=== PATIENT | male | born 1960 | race Two or more races ===

== ENCOUNTER 2016-09-25 06:22 | Observation (INO) | payer BC ==
[2016-09-25] MEDS ORDERED: Sodium Chloride 0.9% 1,000 ML IV SCH (07:00)
[2016-09-25] MEDS ORDERED: Albuterol/Ipratropium 3.0-0.5 MG/3 ML Neb Soln NEB ONE (07:10)
--- NOTE | 2016-09-25 07:10 | EDM.PDOC ---
ED HPI GENERAL MEDICAL PROBLEM - General Chief Complaint: General Stated Complaint: CHILLS; RIGHT SIDE ABDOMINAL PAIN Time Seen by Provider: 09/25/16 06:59 - History of Present Illness INITIAL COMMENTS - FREE TEXT/NARRATIVE: HISTORY AND PHYSICAL: History of present illness: The patient is a 55-year-old male with no stated medical problems who presents with complaints of 4 days of a "light cold" which consisted of cough with yellow phlegm nasal congestion and bodyaches which seemed to improve yesterday but then worsened again today with persistent hacking cough productive of phlegm but this morning he had bodyaches that were sent and chills and feverish feeling. He has no anterior chest pain but had some right flank pain worse with coughing that started with coughing. He has no urinary complaints and no abdominal complaints no vomiting or diarrhea no headache or neck pain. He has no sore throat. Patient did not get his influenza shot this year but has no pulmonary or cardiac disease. Patient is not a smoker and he states he has been around a lot of sick people at work. He has no leg pain or swelling no back pain and has been eating and drinking but not hydrating as much as usual. He does not feel short of breath he just "can't stop coughing". Review of systems: As per history of present illness and below otherwise all systems reviewed and negative. Past medical history: As per history of present illness and as reviewed below otherwise noncontributory. Surgical history: As per history of present illness and as reviewed below otherwise noncontributory. Social history: No reported history of drug or alcohol abuse. Family history: As per history of present illness and as reviewed below otherwise noncontributory. Physical exam: General: Well-developed well-nourished male who is nontoxic and has nasal quality to voice. EKG has been reviewed any a sinus tachycardia both on the EKG and on auscultation. He is speaking clearly and easily without breathlessness HEENT: Atraumatic, normocephalic, pupils reactive, negative for conjunctival pallor or scleral icterus, mucous membranes moist, throat clear, neck supple, nontender, trachea midline. No cervical adenopathy or nuchal rigidity Lungs: Clear to auscultation with some expiratory wheezing in the left base and diminished breath sounds in the right base but no work or breathing or stridor, breath sounds equal bilaterally, chest nontender. Heart: S1S2, regular rate but tachycardic rhythm, negative for clicks, rubs, or JVD. Abdomen: Soft, nondistended, nontender. Negative for masses or hepatosplenomegaly. Negative for costovertebral tenderness. Pelvis: Stable nontender. Genitourinary: Deferred. Rectal: Deferred. Extremities: Atraumatic, negative for cords or calf pain. Neurovascular unremarkable. Pedal edema Neuro: Awake, alert, oriented. Cranial nerves II through XII unremarkable. Cerebellum unremarkable. Motor and sensory unremarkable throughout. Exam nonfocal. Diagnostics: EKG chest x-ray CBC CMP troponin influenza swab lactic acid amylase lipase Therapeutics: IV O2 monitor IV fluids duo neb Patient's labs and chest x-ray have been reviewed and his temperature is down to 100.8, heart rate is 118 and he is resting in the ED. We will get a second liter of IV fluid and a dose of Rocephin and reevaluate. 0900: this case was discussed with our hospitalist Dr. Leavitt who agrees for observation admission for the persistent tachycardia and a likely viral illness and patient is willing to stay. Impression: Persistent tachycardia with a viral illness rule out early sepsis Definitive disposition and diagnosis as appropriate pending reevaluation and review of above. generalized Pain Score (Numeric/FACES): 8 - Related Data Allergies Allergy/AdvReac Type Severity Reaction Status Date / Time No Known Allergies Allergy Verified 09/25/16 06:36 Home Meds: Home Meds Multivitamin [Multivitamins] 1 each PO DAILY 09/25/16 [History] Past Medical History HEENT History: Reports: None Cardiovascular History: Reports: None Respiratory History: Reports: None Gastrointestinal History: Reports: None Genitourinary History: Reports: None Musculoskeletal History: Reports: Other (see below) Other Musculoskeletal History: surgery on foot from stepping on niru nail Neurological History: Reports: None Psychiatric History: Reports: None Endocrine/Metabolic History: Reports: None Hematologic History: Reports: None - Infectious Disease History Infectious Disease History: Reports: Chicken pox Social & Family History - Family History Family Medical History: Noncontributory - Tobacco Use Smoking Status *Q: Never Smoker - Recreational Drug Use Recreational Drug Use: No ED ROS GENERAL - Review of Systems Review Of Systems: ROS reveals no pertinent complaints other than HPI. ED EXAM, GENERAL - Physical Exam Exam: See Below (See dictation) Course - Vital Signs Last Recorded V/S: Last Vital Signs Temp 38.2 C H 09/25/16 08:10 Pulse 118 H 09/25/16 08:10 Resp 20 09/25/16 08:10 BP 135/86 09/25/16 08:10 Pulse Ox 96 09/25/16 08:10 - Orders/Labs/Meds Orders: Active Orders 24 hr Category Date Time Status Cardiac Monitoring [RC] . DIRECTED Care 09/25/16 07:00 Active EKG Documentation Completion [RC] STAT Care 09/25/16 06:53 Active Oxygen Therapy, ED [RC] ASDIRECTED Care 09/25/16 07:00 Active Pulse Oximetry [RC] ASDIRECTED Care 09/25/16 07:00 Active RT Aerosol Therapy [RC] ASDIRECTED Care 09/25/16 07:10 Active Chest 2V [CR] Stat Exams 09/25/16 07:10 Taken UA W/MICROSCOPIC [URIN] Stat Lab 09/25/16 07:06 Uncollected Sodium Chloride 0.9% [Normal Saline] 1,000 ml Med 09/25/16 08:08 Active IV .Bolus Sodium Chloride 0.9% [Normal Saline] 1,000 ml Med 09/25/16 07:00 Active IV ASDIRECTED Medication Orders Sodium Chloride (Normal Saline) 1,000 mls @ 999 mls/hr IV ASDIRECTED RAQUEL Last Admin: 09/25/16 07:07 Dose: 999 mls/hr Sodium Chloride (Normal Saline) 1,000 mls @ 999 mls/hr IV .Bolus ONE Stop: 09/25/16 09:08 Last Admin: 09/25/16 08:13 Dose: 999 mls/hr Labs: Laboratory Tests 09/25/16 09/25/16 09/25/16 Range/Units 07:12 07:12 07:12 WBC 12.61 H (4.0-11.0) K/uL RBC 5.14 (4.50-5.90) M/uL Hgb 14.4 (13.0-17.0) g/dL Hct 43.3 (38.0-50.0) % MCV 84.2 (80.0-98.0) fL MCH 28.0 (27.0-32.0) pg MCHC 33.3 (31.0-37.0) g/dL RDW Std Deviation 40.9 (28.0-62.0) fl RDW Coeff of Shannon 14 (11.0-15.0) % Plt Count 197 (150-400) K/uL MPV 8.60 (7.40-12.00) fL Neut % (Auto) 86.9 H (48.0-80.0) % Lymph % (Auto) 7.5 L (16.0-40.0) % Payette % (Auto) 4.5 (0.0-15.0) % Eos % (Auto) 0.9 (0.0-7.0) % Baso % (Auto) 0.2 (0.0-1.5) % Neut # (Auto) 11.0 H (1.4-5.7) K/uL Lymph # (Auto) 0.9 (0.6-2.4) K/uL Payette # (Auto) 0.6 (0.0-0.8) K/uL Eos # (Auto) 0.1 (0.0-0.7) K/uL Baso # (Auto) 0.0 (0.0-0.1) K/uL Nucleated RBC % 0.0 /100WBC Nucleated RBCs # 0 K/uL Lactate (0.20-2.00) mmol/L Sodium 136 (136-146) mmol/L Potassium 4.1 (3.5-5.1) mmol/L Chloride 105 (98-110) mmol/L Carbon Dioxide 22 (21-31) mmol/L BUN 20 (6.0-23.0) mg/dL Creatinine 1.0 (0.6-1.5) mg/dL Est Cr Clr Drug Dosing 85.43 mL/min Estimated GFR (MDRD) > 60.0 ml/min Glucose 123 H (60-110) mg/dL Calcium 8.6 L (8.8-10.8) mg/dL Total Bilirubin 0.7 (0.1-1.5) mg/dL AST 22 (5-40) IU/L ALT 12 (8-54) IU/L Alkaline Phosphatase 93 (40-150) Troponin I < 0.10 (0.0-0.29) NG/ML Total Protein 7.5 (6.0-8.0) g/dL Albumin 3.6 (3.5-5.0) g/dL Globulin 3.9 H (2.0-3.5) g/dL Albumin/Globulin Ratio 0.9 L (1.3-2.8) Amylase (10-90) U/L Lipase (7-80) U/L 09/25/16 09/25/16 Range/Units 07:12 07:12 WBC (4.0-11.0) K/uL RBC (4.50-5.90) M/uL Hgb (13.0-17.0) g/dL Hct (38.0-50.0) % MCV (80.0-98.0) fL MCH (27.0-32.0) pg MCHC (31.0-37.0) g/dL RDW Std Deviation (28.0-62.0) fl RDW Coeff of Shannon (11.0-15.0) % Plt Count (150-400) K/uL MPV (7.40-12.00) fL Neut % (Auto) (48.0-80.0) % Lymph % (Auto) (16.0-40.0) % Payette % (Auto) (0.0-15.0) % Eos % (Auto) (0.0-7.0) % Baso % (Auto) (0.0-1.5) % Neut # (Auto) (1.4-5.7) K/uL Lymph # (Auto) (0.6-2.4) K/uL Payette # (Auto) (0.0-0.8) K/uL Eos # (Auto) (0.0-0.7) K/uL Baso # (Auto) (0.0-0.1) K/uL Nucleated RBC % /100WBC Nucleated RBCs # K/uL Lactate 1.7 (0.20-2.00) mmol/L Sodium (136-146) mmol/L Potassium (3.5-5.1) mmol/L Chloride (98-110) mmol/L Carbon Dioxide (21-31) mmol/L BUN (6.0-23.0) mg/dL Creatinine (0.6-1.5) mg/dL Est Cr Clr Drug Dosing mL/min Estimated GFR (MDRD) ml/min Glucose (60-110) mg/dL Calcium (8.8-10.8) mg/dL Total Bilirubin (0.1-1.5) mg/dL AST (5-40) IU/L ALT (8-54) IU/L Alkaline Phosphatase (40-150) Troponin I (0.0-0.29) NG/ML Total Protein (6.0-8.0) g/dL Albumin (3.5-5.0) g/dL Globulin (2.0-3.5) g/dL Albumin/Globulin Ratio (1.3-2.8) Amylase 70 (10-90) U/L Lipase 22 (7-80) U/L Meds: Medications Generic Name Dose Route Start Last Admin Trade Name Freq PRN Reason Stop Dose Admin Sodium Chloride 1,000 mls @ 999 mls/hr 09/25/16 07:00 09/25/16 07:07 Normal Saline IV 999 mls/hr ASDIRECTED RAQUEL Administration Sodium Chloride 1,000 mls @ 999 mls/hr 09/25/16 08:08 09/25/16 08:13 Normal Saline IV 09/25/16 09:08 999 mls/hr .Bolus ONE Administration Discontinued Medications Generic Name Dose Route Start Last Admin Trade Name Freq PRN Reason Stop Dose Admin Acetaminophen 1,000 mg 09/25/16 07:13 09/25/16 07:30 Tylenol Extra Strength PO 09/25/16 07:14 1,000 mg ONETIME ONE Administration Albuterol/Ipratropium 3 ml 09/25/16 07:10 09/25/16 07:12 Duoneb 3.0-0.5 Mg/3 Ml NEB 09/25/16 07:11 3 ml ONETIME ONE Administration Albuterol/Ipratropium Confirm 09/25/16 07:11 09/25/16 07:22 Duoneb 3.0-0.5 Mg/3 Ml Administered 09/25/16 07:12 Not Given Dose 3 ml .ROUTE .STK-MED ONE Ceftriaxone Sodium/Dextrose 1 50 mls @ 100 mls/hr 09/25/16 08:09 09/25/16 08: 17 gm/ Premix IV 09/25/16 08:38 100 mls/hr ONETIME ONE Administration Ketorolac Tromethamine 30 mg 09/25/16 07:14 09/25/16 07:31 Toradol IVPUSH 09/25/16 07:15 30 mg ONETIME ONE Administration Departure - Departure Time of Disposition: 09:01 Disposition: Refer to Observation Condition: good Clinical Impression: Viral illness, Tachycardia Forms: ED Department Discharge - My Orders Last 24 Hours: My Active Orders 09/25/16 07:00 Cardiac Monitoring [RC] . DIRECTED Oxygen Therapy, ED [RC] ASDIRECTED Pulse Oximetry [RC] ASDIRECTED 09/25/16 07:06 UA W/MICROSCOPIC [URIN] Stat 09/25/16 07:10 RT Aerosol Therapy [RC] ASDIRECTED Chest 2V [CR] Stat 09/25/16 08:08 Sodium Chloride 0.9% [Normal Saline] 1,000 ml IV .Bolus - Assessment/Plan Last 24 Hours: My Active Orders 09/25/16 07:00 Cardiac Monitoring [RC] . DIRECTED Oxygen Therapy, ED [RC] ASDIRECTED Pulse Oximetry [RC] ASDIRECTED 09/25/16 07:06 UA W/MICROSCOPIC [URIN] Stat 09/25/16 07:10 RT Aerosol Therapy [RC] ASDIRECTED Chest 2V [CR] Stat 09/25/16 08:08 Sodium Chloride 0.9% [Normal Saline] 1,000 ml IV .Bolus
[2016-09-25] MEDS ORDERED: Albuterol/Ipratropium 3.0-0.5 MG/3 ML Neb Soln ONE (07:11)
[2016-09-25] MEDS ORDERED: Acetaminophen 500 MG Tab PO ONE (07:13)
[2016-09-25] MEDS ORDERED: Ketorolac 30 MG/ML SDV IVPUSH ONE (07:14)
[2016-09-25 07:44] LABS: CHLORIDE,CL 105 mmol/L (98-110); SODIUM,NA 136 mmol/L (136-146)
[2016-09-25] MEDS ORDERED: Sodium Chloride 0.9% 1,000 ML IV ONE (08:08)
[2016-09-25] MEDS ORDERED: cefTRIAXone 1 GM in Premix Bag 1 BAG IV ONE (08:09)
--- NOTE | 2016-09-25 10:41 | CR ---
EXAM DATE: 09/25/16 PATIENT'S AGE: 55 Patient: HUTNER CAMACHO Facility: [place], [place] Site . Site : [id number] Study: XRay Chest [id number]/6/2017 7:23:59 AM Ordering Physician: Jose Amaya Final Report: HISTORY: Shortness of breath, cough and fatigue. FINDINGS: PA and lateral chest radiographs demonstrate a normal cardiac silhouette. Pulmonary vasculature and beatriz are normal. No consolidation or pleural effusion is seen. Peridiscal spurring is seen within the thoracic spine. IMPRESSION: No acute cardiopulmonary disease or infiltrate. Dictated by Laura Freeman MD @ 09/25/2016 7:33:19 AM Dictated by: Laura Freeman MD @ 09/25/2016 07:33:27 (Electronic Signature) Report Signed by Proxy and Original Signed Document filed in the Medical Record. MTDD
[2016-09-25] MEDS ORDERED: Ondansetron 4 MG/2 ML SDV IVPUSH PRN (10:55)
--- NOTE | 2016-09-25 11:27 | PCM.HP ---
H&P History of Present Illness - General Date of Service: 09/25/16 Admit Problem/Dx: Admission Diagnosis/Problem Admission Diagnosis/Problem Tachycardia Source of Information: Patient History Limitations: Reports: No limitations - History of Present Illness Initial Comments - Free Text/Narative: This 55 year old male with little pmh presented to the ED with complaints of cough,malaise and body aches. He reports on Thursday he started sneezing and coughing with a runny nose and sore throat. It progressively worsened and has now included fevers, chills, body aches and maliase. He reports he woke up at 3 am this darnell shaking uncontrollably and felt he should be evaluated. He did not receive his influenza vaccine and has been around a lot of sick contacts at work. He reports approximately 2 months ago he was sick with a similar cold but it was as bad, but it "knocked him down" for 2-3 days. He has no complaints of chest pain. He has SOB and intermittently can feel palpitations. No abdominal pain or urinary symptoms. Has been constipated recently and not drinking much for fluids. No black or bloody BMs. He has complaints of low back pain intermittently and his legs feeling weak. No neck stiffness or rigidity. In [facility] ED leukocytosis noted, 12,610, lactate 1.7, Influenza negative, CXR negative. He was febrile, 102.3 F, He was given 2 L IVFs and given Rocephin. EKG , revealed sinus tachycardia, rate 110s. He will be admitted for fever, tachycardia with a likely viral illness. generalized Pain Score (Numeric/FACES): 8 - Related Data Allergies/Adverse Reactions: Allergies Allergy/AdvReac Type Severity Reaction Status Date / Time No Known Allergies Allergy Verified 09/25/16 06:36 Home Medications: Home Meds Multivitamin [Multivitamins] 1 each PO DAILY 09/25/16 [History] Past Medical History HEENT History: Reports: None Cardiovascular History: Reports: Hypertension (been told he is borderline). Denies: Afib, Blood clots/VTE/DVT, AL Respiratory History: Reports: None. Denies: Asthma, COPD Gastrointestinal History: Reports: None, GERD (intermittent). Denies: GI bleed Genitourinary History: Reports: None. Denies: Acute renal failure, Chronic renal insuffiency Musculoskeletal History: Reports: Other (see below) Other Musculoskeletal History: surgery on foot from stepping on niru nail Neurological History: Reports: None Psychiatric History: Reports: None Endocrine/Metabolic History: Reports: Obesity/BMI 30+. Denies: Diabetes, type II Hematologic History: Reports: None - Infectious Disease History Infectious Disease History: Reports: Chicken pox Social & Family History - Family History Family Medical History: Noncontributory - Tobacco Use Smoking Status *Q: Never Smoker Second Hand Smoke Exposure: No - Caffeine Use Caffeine Use: Reports: Coffee - Recreational Drug Use Recreational Drug Use: No - Living Situation & Occupation Living situation: Reports: (Originally from [place], currently still lives in [place]. He is here working.) Occupation: employed [employer] Review of Systems - Review of Systems: Review Of Systems: See Below General: Reports: fever, chills, malaise, weakness, diaphoresis, decreased appetite HEENT: Reports: headaches. Denies: sore throat Pulmonary: Reports: Shortness of Breath, Pleuritic Chest Pain, Cough, Sputum Cardiovascular: Denies: chest pain, dyspnea on exertion, edema Gastrointestinal: Reports: Constipation, Decreased appetite, Flatus. Denies: Abdominal pain, Distension, Nausea, Vomiting Genitourinary: Reports: no symptoms. Denies: dysuria, frequency, burning Musculoskeletal: Reports: back pain (low back pain, worsens with coughing). Denies: neck pain Skin: Reports: no symptoms Psychiatric: Reports: no symptoms Neurological: Reports: No Symptoms Hematologic/Lymphatic: Reports: no symptoms Immunologic: Reports: no symptoms Exam - Exam Exam: See Below - Vital Signs Vital Signs: Last Vital Signs Temp 100.6 F 09/25/16 09:11 Pulse 104 H 09/25/16 10:02 Resp 18 09/25/16 10:02 BP 113/60 09/25/16 10:02 Pulse Ox 97 09/25/16 10:02 Weight: 102 kg - Exam Quality Assessment: DVT prophylaxis General: alert, oriented, cooperative HEENT: Conjunctiva clear, EACs clear, EOMI, Hearing intact, Mucosa moist & pink , Nares patent (congestion heard), Posterior pharynx clear Neck: supple, trachea midline, 2+ carotid pulse wo bruit. No: lymphadenopathy Lungs: Clear to auscultation, Normal respiratory effort, Other (congested coughing) Cardiovascular: regular rhythm, normal S1, normal S2, tachycardia (improving with IVFs) Abdomen: normal bowel sounds, soft. No: organomegaly, distention, rebound, tenderness Back Exam: normal inspection, full range of motion, NT Extremities: 3, normal inspection, 10 Neuro Extensive - Mental Status: alert, oriented x3, normal mood/affect, normal cognition Neuro Extensive - Motor, Sensory, Reflexes: CN II-XII intact, normal gait, normal reflexes Psychiatric: alert, normal affect, normal mood - Patient Data Result Diagrams: 09/25/16 07:12 09/25/16 07:12 *Q Meaningful Use (ADM) - VTE *Q VTE Criteria *Q: - VTE Risk Assess *Q Each Risk Factor Represents 1 Point: Age 41 - 59 years, Obesity (BMI greater than 30) Total Score 1 Point Risk Factors: 2 Each Risk Factor Represents 2 Points: None Total Score 2 Point Risk Factors: 0 Each Risk Factor Represents 3 Points: None Total Score 3 Point Risk Factors: 0 Each Risk Factor Represents 5 Points: None Total Score 5 Point Risk Factors: 0 Venous Thromboembolism Risk Factor Score *Q: 2 - Stroke *Q Stroke Criteria *Q: - AMI *Q AMI Criteria *Q: - Problem List (1) Fever SNOMED Code(s): 046433705 ICD Code: R50.9 - FEVER, UNSPECIFIED Status: Acute Current Visit: Yes Qualifiers: Encounter type: initial encounter (2) Leukocytosis SNOMED Code(s): 774557719, 760631457 ICD Code: D72.829 - ELEVATED WHITE BLOOD CELL COUNT, UNSPECIFIED Status: Acute Current Visit: Yes (3) Tachycardia SNOMED Code(s): 1253628 ICD Code: R00.0 - TACHYCARDIA, UNSPECIFIED Status: Acute Current Visit: Yes (4) Viral illness SNOMED Code(s): 95786573, 529957268 ICD Code: B34.9 - VIRAL INFECTION, UNSPECIFIED Status: Acute Current Visit: Yes Problem List Initiated/Reviewed/Updated: Yes Orders Last 24hrs: Active Orders 24 hr Category Date Time Status Antiembolic Devices [RC] PER UNIT ROUTINE Care 09/25/16 10:56 Ordered Intake and Output [RC] QSHIFT Care 09/25/16 10:55 Ordered Oxygen Therapy [RC] PRN Care 09/25/16 10:55 Ordered Telemetry Monitoring [Cardiac Monitoring] [RC] . Care 09/25/16 10:54 Ordered DIRECTED Up ad Dinah [RC] ASDIRECTED Care 09/25/16 10:55 Ordered VTE/DVT Education [RC] PER UNIT ROUTINE Care 09/25/16 10:55 Ordered Vital Signs [RC] Q4H Care 09/25/16 10:55 Ordered Regular Diet [DIET] Diet 09/25/16 Lunch Ordered BASIC METABOLIC PANEL,BMP [CHEM] AM Lab 09/26/16 05:11 Ordered CBC WITH AUTO DIFF [HEME] AM Lab 09/26/16 05:11 Ordered Acetaminophen [Tylenol] Med 09/25/16 10:55 Ordered 650 mg PO Q4H PRN Azithromycin [Zithromax] Med 09/25/16 11:15 Ordered 500 mg PO Q24H Ondansetron [Zofran] Med 09/25/16 10:55 Ordered 4 mg IVPUSH Q4H PRN Sodium Chloride 0.9% @ 125 MLS/HR (1000ml) Med 09/25/16 11:00 Ordered Sodium Chloride 0.9% [Normal Saline] 1,000 ml IV ASDIRECTED cefTRIAXone [Rocephin in Dextrose,Iso-Osm 1 GM/50 ML] 1 Med 09/26/16 09:00 Ordered gm Premix Bag 1 bag IV Q24H Sequential Compression Device [OM.PC] Per Unit Routine Oth 09/25/16 10:55 Ordered Resuscitation Status Routine Resus Stat 09/25/16 10:55 Ordered Medication Orders Acetaminophen (Tylenol) 650 mg PO Q4H PRN PRN Reason: Pain Azithromycin (Zithromax) 500 mg PO Q24H [facility] Sodium Chloride (Normal Saline) 1,000 mls @ 999 mls/hr IV ASDIRECTED [facility] Last Admin: 09/25/16 07:07 Dose: 999 mls/hr Sodium Chloride (Normal Saline) 1,000 mls @ 125 mls/hr IV ASDIRECTED [facility] Ceftriaxone Sodium/Dextrose 1 (gm/ Premix) 50 mls @ 100 mls/hr IV Q24H [facility] Ondansetron HCl (Zofran) 4 mg IVPUSH Q4H PRN PRN Reason: Nausea Assessment/Plan Comment:: This 55 year old male admitted with fever, leukocytosis, and malaise 1. Fever/leukocytosis: Will continue with Rocephin and Azithromycin. Continue IVFs, NS 125. UA negative. Though influenza negative, will start Tamiflu 75 mg BID 2. Tachycardia: EKG ST, monitor on telemetry. No chest pain. Tachycardia likely due to dehydration secondary to illness and fever. VTE: SCDs Dispo: Likely discharge in am, pending improvement.
[2016-09-25] MEDS: Sodium Chloride 0.9% 1,000 ML IV SCH ×2 (11:32→19:19)
[2016-09-25] MEDS: Azithromycin 250 MG Tab PO SCH (11:32)
[2016-09-25] MEDS: Acetaminophen 325 MG Tab PO PRN ×3 (11:52→20:46)
[2016-09-25] MEDS ORDERED: Albuterol/Ipratropium 3.0-0.5 MG/3 ML Neb Soln NEB PRN (12:30)
[2016-09-25] MEDS: Oseltamivir 75 MG Cap PO SCH ×2 (13:12→20:46)
[2016-09-25] MEDS ORDERED: Benzonatate 100 MG Cap PO PRN (14:44)
[2016-09-25] MEDS ORDERED: Polyethylene Glycol 3350 Powder 17 GM Packet PO PRN (15:14)
[2016-09-25] MEDS: Docusate Sodium 100 MG Cap PO SCH ×2 (15:48→21:30)
[2016-09-25] MEDS ORDERED: Ibuprofen 400 MG Tab PO PRN (16:12)
[2016-09-26] MEDS: Sodium Chloride 0.9% 1,000 ML IV SCH (03:11)
[2016-09-26 05:17] LABS: CHLORIDE,CL 109 mmol/L (98-110); SODIUM,NA 139 mmol/L (136-146)
[2016-09-26] MEDS ORDERED: Calcium Carbonate 500 MG Tab.Chew PO ONE (07:59)
[2016-09-26 08:12] VITALS: BP 141/81
[2016-09-26] MEDS: Oseltamivir 75 MG Cap PO SCH (08:17)
[2016-09-26] MEDS: Docusate Sodium 100 MG Cap PO SCH (08:17)
[2016-09-26] MEDS ORDERED: cefTRIAXone 1 GM in Premix Bag 1 BAG IV SCH (09:00)
--- NOTE | 2016-09-26 09:39 | PCM.DCSUM1 ---
Discharge Summary - Hospital Course Brief History: This 55 year old male with little pmh presented to the ED 2016 with complaints of cough,malaise and body aches. He reports on Thursday he started sneezing and coughing with a runny nose and sore throat. It progressively worsened and has now included fevers, chills, body aches and maliase. He reports he woke up at 3 am this darnell shaking uncontrollably and felt he should be evaluated. He did not receive his influenza vaccine and has been around a lot of sick contacts at work. He reports approximately 2 months ago he was sick with a similar cold but it was as bad, but it "knocked him down" for 2- 3 days. He has no complaints of chest pain. He has SOB and intermittently can feel palpitations. No abdominal pain or urinary symptoms. Has been constipated recently and not drinking much for fluids. No black or bloody BMs. He has complaints of low back pain intermittently and his legs feeling weak. No neck stiffness or rigidity. In the ED leukocytosis noted, 12,610, lactate 1.7, Influenza negative, CXR negative. He was febrile, 102.3 F, He was given 2 L IVFs and given Rocephin. EKG, revealed sinus tachycardia, rate 110s. He was admitted for fever, tachycardia with a likely viral illness. - Discharge Data Discharge Date: 09/26/16 Discharge Disposition: Home, Self-Care 01 Condition: Good - Discharge Diagnosis/Problem(s) (1) Fever SNOMED Code(s): 773986069 ICD Code: R50.9 - FEVER, UNSPECIFIED Status: Resolved Current Visit: Yes Qualifiers: Encounter type: initial encounter (2) Leukocytosis SNOMED Code(s): 016053196, 810759946 ICD Code: D72.829 - ELEVATED WHITE BLOOD CELL COUNT, UNSPECIFIED Status: Acute Current Visit: Yes (3) Tachycardia SNOMED Code(s): 0067342 ICD Code: R00.0 - TACHYCARDIA, UNSPECIFIED Status: Acute Current Visit: Yes (4) Viral illness SNOMED Code(s): 53816635, 536218438 ICD Code: B34.9 - VIRAL INFECTION, UNSPECIFIED Status: Acute Current Visit: Yes - Patient Instructions Diet: Regular Diet as Tolerated Activity: As Tolerated, No Strenuous Activities Driving: May Drive Today Showering/Bathing: May Shower Notify Provider of: Fever, Increased Pain, Swelling and Redness, Drainage, Nausea and/or Vomiting - Discharge Plan Prescriptions/Med Rec: RX: Azithromycin [Zithromax] 500 mg PO Q24H #6 tablet RX: Benzonatate [Tessalon Perles] 100 mg PO TID PRN #20 cap PRN Reason: Cough RX: Oseltamivir Phosphate [IJD: Tamiflu] 75 mg PO BID #7 capsule Home Medications: Home Meds RX: Multivitamin [Multivitamins] 1 each PO DAILY 09/25/16 [History] RX: Azithromycin [Zithromax] 500 mg PO Q24H #6 tablet 09/26/16 [Rx] RX: Benzonatate [Tessalon Perles] 100 mg PO TID PRN #20 cap 09/26/16 [Rx] RX: Oseltamivir Phosphate [IJD: Tamiflu] 75 mg PO BID #7 capsule 09/26/16 [Rx] Patient Handouts: Viral Respiratory Infection, [id number] Forms: ED Department Discharge Referrals: Enma Cleveland PA [Physician Crystal Inspector] - 09/29/16 10:00 am (Hospital follow up ) - Discharge Summary/Plan Comment DC Time >30 min.: No Discharge Summary/Plan Comment: Discharge diagnoses: Viral illness with fever tachycardia dehydration Gabo was admitted to observation and treated with Azithromycin and Rocephin along with Tamiflu and IV fluids. Tachycardia resolved with hydration. Tamiflu given due to flu-like symptoms, though influenza swab was negative. Azithromycin and Rocephin administered due to leukocytosis and fevers. Today Gabo is feeling much better, sinus congestion is much more clear. and cough has improved. He was able to eat a large breakfast and feels a lot stronger. He is requesting discharge today. I will send him home with Azithromycin for another 3 days along with tamiflu for 4 more days and tessalon pearls for cough. He will be returning home to [place], will encourage him to follow up with PCP to ensure he is continuing to improve. He otherwise will be able to return to work on Thursday. He is to return to the ED or clinic if concerns should arise. - General Info Date of Service: 09/26/16 Admission Dx/Problem (Free Text: Admission Diagnosis/Problem Admission Diagnosis/Problem Tachycardia Subjective Update: Feeling a lot better, sitting up in bed just finished eating breakfast. Reports no chest pain and SOB is better, coughing continues but is improved. Sinus congestion is much more clear and is able to breath through his nose. - Review of Systems General: Reports: No Symptoms. Denies: Fever, Fatigue HEENT: Reports: sinus congestion. Denies: ear pain, sore throat, visual changes Pulmonary: Reports: cough. Denies: shortness of breath Cardiovascular: Reports: No Symptoms. Denies: Chest Pain, Palpitations, Edema Gastrointestinal: Reports: No symptoms. Denies: Abdominal pain, Nausea, Vomiting Genitourinary: Reports: no symptoms. Denies: dysuria, frequency, burning Musculoskeletal: Reports: no symptoms Skin: Reports: no symptoms Neurological: Reports: No Symptoms Psychiatric: Reports: no symptoms - Patient Data Vitals - Most Recent: Last Vital Signs Temp 98.8 F 09/26/16 08:00 Pulse 104 H 09/25/16 10:02 Resp 20 09/26/16 08:00 BP 141/81 H 09/26/16 08:00 Pulse Ox 95 09/26/16 08:00 Weight - Most Recent: 102 kg I&O - Last 24 hours: Intake & Output 09/25/16 09/26/16 09/26/16 22:59 06:59 14:59 Intake Total 1700 1650 Output Total 1075 1630 Balance 625 20 Lab Results - Last 24 hrs: Laboratory Results - last 24 hr 09/25/16 09/26/16 09/26/16 Range/Units 11:15 04:52 04:52 WBC 12.13 H (4.0-11.0) K/uL RBC 4.89 (4.50-5.90) M/uL Hgb 13.6 (13.0-17.0) g/dL Hct 41.6 (38.0-50.0) % MCV 85.1 (80.0-98.0) fL MCH 27.8 (27.0-32.0) pg MCHC 32.7 (31.0-37.0) g/dL RDW Std Deviation 43.6 (28.0-62.0) fl RDW Coeff of Shannon 14 (11.0-15.0) % Plt Count 174 (150-400) K/uL MPV 8.50 (7.40-12.00) fL Neut % (Auto) 76.4 (48.0-80.0) % Lymph % (Auto) 15.9 L (16.0-40.0) % Chaves % (Auto) 6.4 (0.0-15.0) % Eos % (Auto) 1.1 (0.0-7.0) % Baso % (Auto) 0.2 (0.0-1.5) % Neut # (Auto) 9.3 H (1.4-5.7) K/uL Lymph # (Auto) 1.9 (0.6-2.4) K/uL Chaves # (Auto) 0.8 (0.0-0.8) K/uL Eos # (Auto) 0.1 (0.0-0.7) K/uL Baso # (Auto) 0.0 (0.0-0.1) K/uL Nucleated RBC % 0.0 /100WBC Nucleated RBCs # 0 K/uL Sodium 139 (136-146) mmol/L Potassium 4.1 (3.5-5.1) mmol/L Chloride 109 (98-110) mmol/L Carbon Dioxide 21 (21-31) mmol/L BUN 12 (6.0-23.0) mg/dL Creatinine 0.9 (0.6-1.5) mg/dL Est Cr Clr Drug Dosing 94.92 mL/min Estimated GFR (MDRD) > 60.0 ml/min Glucose 112 H (60-110) mg/dL Calcium 7.6 L (8.8-10.8) mg/dL Urine Color YELLOW Urine Appearance CLEAR Urine pH 6.0 (5.0-8.0) Ur Specific Wilmot <= 1.005 (1.001-1.035) Urine Protein NEGATIVE (NEGATIVE) mg/dL Urine Glucose (UA) NEGATIVE (NEGATIVE) mg/dL Urine Ketones NEGATIVE (NEGATIVE) mg/dL Urine Occult Blood NEGATIVE (NEGATIVE) Urine Nitrite NEGATIVE (NEGATIVE) Urine Bilirubin NEGATIVE (NEGATIVE) Urine Urobilinogen 0.2 (<2.0) EU/dL Ur Leukocyte Esterase NEGATIVE (NEGATIVE) Urine RBC NONE SEEN (0-2/HPF) Urine WBC 0-1 (0-5/HPF) Ur Epithelial Cells RARE (NONE-FEW) Urine Bacteria RARE (NEGATIVE) Med Orders - Current: Current Medications Acetaminophen (Tylenol) 650 mg PO Q4H PRN PRN Reason: Pain Last Admin: 09/25/16 20:46 Dose: 650 mg Albuterol/Ipratropium (Duoneb 3.0-0.5 Mg/3 Ml) 3 ml NEB Q4HRRT PRN PRN Reason: SOB/wheezing Azithromycin (Zithromax) 500 mg PO Q24H [facility] Last Admin: 09/25/16 11:32 Dose: 500 mg Benzonatate (Tessalon Perles) 100 mg PO TID PRN PRN Reason: Cough Last Admin: 09/25/16 15:49 Dose: 100 mg Docusate Sodium (Colace) 100 mg PO BID [facility] Last Admin: 09/26/16 08:17 Dose: Not Given Sodium Chloride (Normal Saline) 1,000 mls @ 999 mls/hr IV ASDIRECTED [facility] Last Admin: 09/25/16 07:07 Dose: 999 mls/hr Sodium Chloride (Normal Saline) 1,000 mls @ 125 mls/hr IV ASDIRECTED [facility] Last Admin: 09/26/16 03:11 Dose: 125 mls/hr Ceftriaxone Sodium/Dextrose 1 (gm/ Premix) 50 mls @ 100 mls/hr IV Q24H [facility] Last Admin: 09/26/16 08:16 Dose: 100 mls/hr Ibuprofen (Motrin) 400 mg PO Q6H PRN PRN Reason: Pain Last Admin: 09/25/16 16:44 Dose: 400 mg Ondansetron HCl (Zofran) 4 mg IVPUSH Q4H PRN PRN Reason: Nausea Oseltamivir Phosphate (Tamiflu) 75 mg PO BID [facility] Last Admin: 09/26/16 08:17 Dose: 75 mg Polyethylene Glycol (Miralax) 17 gm PO BEDTIME PRN PRN Reason: Constipation Last Admin: 09/25/16 15:48 Dose: 17 gm Discontinued Medications Acetaminophen (Tylenol Extra Strength) 1,000 mg PO ONETIME ONE Stop: 09/25/16 07:14 Last Admin: 09/25/16 07:30 Dose: 1,000 mg Albuterol/Ipratropium (Duoneb 3.0-0.5 Mg/3 Ml) 3 ml NEB ONETIME ONE Stop: 09/25/16 07:11 Last Admin: 09/25/16 07:12 Dose: 3 ml Albuterol/Ipratropium (Duoneb 3.0-0.5 Mg/3 Ml) Confirm Administered Dose 3 ml .ROUTE .STK-MED ONE Stop: 09/25/16 07:12 Last Admin: 09/25/16 07:22 Dose: Not Given Calcium Carbonate/Glycine (Tums) 1,000 mg PO ONETIME ONE Stop: 09/26/16 08:00 Last Admin: 09/26/16 08:17 Dose: 1,000 mg Sodium Chloride (Normal Saline) 1,000 mls @ 999 mls/hr IV .Bolus ONE Stop: 09/25/16 09:08 Last Admin: 09/25/16 08:13 Dose: 999 mls/hr Ceftriaxone Sodium/Dextrose 1 (gm/ Premix) 50 mls @ 100 mls/hr IV ONETIME ONE Stop: 09/25/16 08:38 Last Admin: 09/25/16 08:17 Dose: 100 mls/hr Ketorolac Tromethamine (Toradol) 30 mg IVPUSH ONETIME ONE Stop: 09/25/16 07:15 Last Admin: 09/25/16 07:31 Dose: 30 mg - Exam Quality Assessment: Reports: DVT prophylaxis. Denies: supplemental oxygen General: Reports: alert, oriented, cooperative Lungs: Reports: Clear to auscultation, Normal respiratory effort Cardiovascular: Reports: Regular Rate, Regular Rhythm Abdomen: Reports: bowel sounds present, soft, no tenderness, no distension Extremities: Reports: no edema, normal pulses Skin: Reports: warm, dry, intact Neurological: Reports: no new focal deficit Psy/Mental Status: Reports: alert, normal affect, normal mood *Q Meaningful Use (DIS) - VTE *Q VTE Criteria *Q: - Stroke *Q Stroke Criteria *Q: - AMI *Q AMI Criteria *Q:
[2016-09-26] MEDS: Azithromycin 250 MG Tab PO SCH (10:49)
== END 2016-09-26 12:14 | disposition home or self-care (01) ==
LOC: MW.ED 06:22 → MW.ICU 09:01
PROVIDERS: ADMIT Internal Medicine; ATTEND Internal Medicine
DX: R50.9 Fever, unspecified (principal); D72.829 Elevated white blood cell count, unspecified; R00.0 Tachycardia, unspecified; B34.9 Viral infection, unspecified; Z79.899 Other long term (current) drug therapy; I10 Essential (primary) hypertension; E66.9 Obesity, unspecified; Z68.30 Body mass index [BMI] 30.0-30.9, adult
CPT/HCPCS: 36415; 71020; 80048; 80053; 81001; 82150; 83605; 83690; 84484; 85025; 87804; 93005; 94664; 96361; 96365; 96375; 99285; A9270; J0696; J1885; J7040; 96376; G0378

== ENCOUNTER 2020-08-24 10:02 | Emergency (ER) | payer BC ==
--- NOTE | 2020-08-24 10:06 | EDM.PDOC ---
ED HPI GENERAL MEDICAL PROBLEM - General Stated Complaint: COUGH TIGHT CHEST Time Seen by Provider: 08/24/20 10:04 Source of Information: Reports: Patient History Limitations: Reports: No Limitations - History of Present Illness INITIAL COMMENTS - FREE TEXT/NARRATIVE: HISTORY AND PHYSICAL: History of present illness: Patient is a 59-year-old male who presents to the emergency room with complaints of chest tightness, cough and shortness of breath over the past few weeks. He states he had pneumonia in 2017 and is concerned he has it now as his symptoms are similar. Describes the chest tightness as midsternal and worse with coughing. Pain does not radiate. SOB is assocaited with coughing. He has not have COVID-19, but multiple co-workers have had it. Patient denies any fever, chills, headache, change in vision, syncope or near syncope. Denies any back pain or hemoptysis. Denies any abdominal pain, nausea, vomiting, diarrhea, constipation or dysuria. Patient has been eating and drinking appropriately. Patient has no personal history of heart disease. Nonsmoker. Review of systems: As per history of present illness and below otherwise all systems reviewed and negative. Past medical history: As per history of present illness and as reviewed below otherwise noncontributory. Surgical history: As per history of present illness and as reviewed below otherwise noncontributory. Social history: See social history for further information Family history: As per history of present illness and as reviewed below otherwise noncontributory. Physical exam: General: Well developed and well nourished. Alert and orientated x 3. Nontoxic in appearance and in no acute distress. Vital signs are stable and have been reviewed by me. Nursing notes were reviewed. HEENT: Atraumatic, normocephalic, pupils equal and reactive bilaterally, negative for conjunctival pallor or scleral icterus, mucous membranes moist, neck supple, nontender, trachea midline. No drooling or trismus noted. No me ningeal signs. No hot potato voice noted. Lungs: Diminished to auscultation bilaterally. No wheezes, rales, or rhonchi. Chest nontender. Normal work of breathing, no accessory muscles used. Heart: S1S2, regular rate and rhythm without overt murmur, gallops, or rubs. No JVD. No peripheral edema Abdomen: Soft, nondistended, nontender. Normoactive bowel sounds. Negative for masses or costovertebral tenderness. Skin: Intact, warm, dry. No lesions or rashes noted. Hematologic: No petechiae or purpra. Mucosa appropriate color and normal nail bed color and refill. Extremities: Atraumatic, moves all extremities per self without difficulty or deficits, negative for cords or calf pain. Neurovascular unremarkable. Neuro: Awake, alert, oriented. Cranial nerves II through XII unremarkable. Cerebellum unremarkable. Motor and sensory unremarkable throughout. Exam nonfocal. Psychiatric: Mood and affect are appropriate. Normal thought process. Answering questions appropriately. Notes: *This patient was seen and evaluated during the 2019 SARS-CoV-2 novel coronavirus pandemic period. Community viral transmission is ongoing at time of this encounter and the emergency department is operating under pandemic response procedures. EKG shows normal sinus rhythm with a rate of 74. No concern for STEMI. Chest x-ray shows no acute findings and no significant changes from prior exam in 2017. Lab work is unremarkable with the exception of being COVID-19 positive. Due to his symptoms lasting 2+ weeks I will give him a Z-Serjio due to his pulmonary history. Patient's vital signs are stable. I have talked with the patient about today's findings, in addition to providing specific details for plan of care. Reassessment at the time of disposition demonstrates that the patient is in no acute distress. The patient is stable for discharge, counseling was provided and we discussed in great detail signs and symptoms that would prompt them to return to the Emergency Department. Medication, follow up and supportive care measures were reviewed and discussed. Voices understanding and is agreeable to plan of care. Denies any further questions or concerns at this time. Diagnostics: CBC, CMP, Troponin, EKG, CXR Therapeutics: Edilbertoo Lesli Prescription: Z-Serjio, Decadron Impression: COVID-19 Plan: 1. Your COVID-19 screening is positive. That means you do have the coronavirus and you are considered contagious. Your vital signs and oxygen saturation are well enough that you were able to monitor your symptoms at home. Continue to monitor for trouble breathing, new confusion or inability to arouse, bluish lips or face or any of the other symptoms we discussed -if this occurs please return to the emergency room. 2. Please self quarantine until the [facility] department tells you. Inform any persons that you have been in contact with since you started becoming symptomatic that you have tested positive; they should be made aware and take the appropriate steps as needed. 3. You can take NyQuil during the evening to help get a restful night sleep. May alternate Tylenol and ibuprofen as needed for pain and fever management. 4. The [facility] department will be calling you and following up with you. The [place] [facility] [employer] Hotline phone number , They are open Thursday - Thursday 7am - 7pm. Follow up with your primary care provider for re-evaluation and re-testing after the 10 day quarantine and discuss when you should be seen. Definitive disposition and diagnosis as appropriate pending reevaluation and review of above. "coughing pain" Pain Score (Numeric/FACES): 7 - Related Data Allergies Allergy/AdvReac Type Severity Reaction Status Date / Time No Known Allergies Allergy Verified 08/24/20 10:11 Home Meds: Home Meds . [No Known Home Meds] 08/24/20 [History] Past Medical History HEENT History: Reports: None Cardiovascular History: Reports: Hypertension (been told he is borderline). Denies: Afib, Blood Clots/VTE/DVT, VA Respiratory History: Reports: None. Denies: Asthma, COPD Gastrointestinal History: Reports: None, GERD (intermittent). Denies: GI Bleed Genitourinary History: Reports: None. Denies: Acute Renal Failure, Chronic Renal Insuffiency Musculoskeletal History: Reports: Other (See Below) Other Musculoskeletal History: surgery on foot from stepping on niru nail Neurological History: Reports: None Psychiatric History: Reports: None Endocrine/Metabolic History: Reports: Obesity/BMI 30+. Denies: Diabetes, Type II Hematologic History: Reports: None - Infectious Disease History Infectious Disease History: Reports: Chicken Pox Social & Family History - Family History Family Medical History: No Pertinent Family History - Caffeine Use Caffeine Use: Reports: Coffee - Living Situation & Occupation Living situation: Reports: Occupation: Employed ED ROS GENERAL - Review of Systems Review Of Systems: Comprehensive ROS is negative, except as noted in HPI. ED EXAM, GENERAL - Physical Exam Exam: See Below (See dictation) Course - Vital Signs Last Recorded V/S: Last Vital Signs Temp 98.6 F 08/24/20 10:12 Pulse 76 08/24/20 10:12 Resp 18 08/24/20 10:12 BP 163/94 H 08/24/20 10:12 Pulse Ox 98 08/24/20 10:12 - Orders/Labs/Meds Orders: Active Orders 24 hr Category Date Time Status EKG Documentation Completion [RC] STAT Care 08/24/20 10:18 Active RT Aerosol Therapy [RC] ASDIRECTED Care 08/24/20 10:19 Active Labs: Laboratory Tests 08/24/20 08/24/20 08/24/20 Range/Units 10:18 10:30 10:30 WBC 4.39 (4.0-11.0) K/uL RBC 4.80 (4.50-5.90) M/uL Hgb 14.7 (13.0-17.0) g/dL Hct 41.9 (38.0-50.0) % MCV 87.3 (80.0-98.0) fL MCH 30.6 (27.0-32.0) pg MCHC 35.1 (31.0-37.0) g/dL RDW Std Deviation 41.2 (28.0-62.0) fl RDW Coeff of Shannon 13 (11.0-15.0) % Plt Count 154 (150-400) K/uL MPV 9.20 (7.40-12.00) fL Neut % (Auto) 60.0 (48.0-80.0) % Lymph % (Auto) 33.9 (16.0-40.0) % Banner % (Auto) 5.0 (0.0-15.0) % Eos % (Auto) 0.9 (0.0-7.0) % Baso % (Auto) 0.2 (0.0-1.5) % Neut # (Auto) 2.6 (1.4-5.7) K/uL Lymph # (Auto) 1.5 (0.6-2.4) K/uL Banner # (Auto) 0.2 (0.0-0.8) K/uL Eos # (Auto) 0.0 (0.0-0.7) K/uL Baso # (Auto) 0.0 (0.0-0.1) K/uL Nucleated RBC % 0.0 /100WBC Nucleated RBCs # 0 K/uL Sodium 140 (136-148) mmol/L Potassium 4.0 (3.5-5.1) mmol/L Chloride 104 (98-107) mmol/L Carbon Dioxide 26.6 (21.0-32.0) mmol/L BUN 13 (7.0-18.0) mg/dL Creatinine 1.1 (0.8-1.3) mg/dL Est Cr Clr Drug Dosing 76.50 mL/min Estimated GFR (MDRD) > 60.0 ml/min Glucose 93 (74-106) mg/dL Calcium 7.8 L (8.5-10.1) mg/dL Total Bilirubin 0.5 (0.2-1.0) mg/dL AST 37 (15-37) IU/L ALT 23 (14-63) IU/L Alkaline Phosphatase 86 (46-116) U/L Troponin I < 0.050 (0.000-0.056) ng/mL Total Protein 7.2 (6.4-8.2) g/dL Albumin 3.1 L (3.4-5.0) g/dL Globulin 4.1 H (2.6-4.0) g/dL Albumin/Globulin Ratio 0.8 L (0.9-1.6) Influenza Type A RNA NEGATIVE (NEGATIVE) Influenza Type B RNA NEGATIVE (NEGATIVE) SARS-CoV-2 RNA (GLADYS) POSITIVE H (NEGATIVE) Meds: Medications Discontinued Medications Generic Name Dose Route Start Last Admin Trade Name Freq PRN Reason Stop Dose Admin Albuterol/Ipratropium 3 ml 08/24/20 10:19 08/24/20 10:22 Duoneb 3.0-0.5 Mg/3 Ml NEB 08/24/20 10:20 3 ml ONETIME ONE Administration Departure - Departure Time of Disposition: 11:14 Disposition: Home, Self-Care 01 Clinical Impression: COVID-19 - Discharge Information Instructions: COVID-19 Referrals: Rashmi Rendon DO [Primary Care Provider] - Additional Instructions: The following information is given to patients seen in the emergency department who are being discharged to home. This information is to outline your options for follow-up care. We provide all patients seen in our emergency department with a follow-up referral. The need for follow-up, as well as the timing and circumstances, are variable de pending upon the specifics of your emergency department visit. If you don't have a primary care physician on staff, we will provide you with a referral. We always advise you to contact your personal physician following an emergency department visit to inform them of the circumstance of the visit and for follow-up with them and/or the need for any referrals to a consulting specialist. The emergency department will also refer you to a specialist when appropriate. This referral assures that you have the opportunity for follow-up care with a specialist. All of these measure are taken in an effort to provide you with optimal care, which includes your follow-up. Under all circumstances we always encourage you to contact your private physician who remains a resource for coordinating your care. When calling for follow-up care, please make the office aware that this follow-up is from your recent emergency room visit. If for any reason you are refused follow-up, please contact the [facility] Emergency Department at and asked to speak to the emergency department charge nurse. [facility] [address] [place] [id number] [place] [address] Thank you for choosing the [facility] emergency department in [place] for your medical needs today. It was a pleasure caring for you. Today you were seen in the emergency department for respiratory symptoms. 1. Your COVID-19 screening is positive. That means you do have the coronavirus and you are considered contagious. Your vital signs and oxygen saturation are well enough that you were able to monitor your symptoms at home. Continue to monitor for trouble breathing, new confusion or inability to arouse, bluish lips or face or any of the other symptoms we discussed -if this occurs please return to the emergency room. 2. Please self quarantine until the [facility] department tells you. Inform any persons that you have been in contact with since you started becoming symptomatic that you have tested positive; they should be made aware and take the appropriate steps as needed. 3. You can take NyQuil during the evening to help get a restful night sleep. May alternate Tylenol and ibuprofen as needed for pain and fever management. 4. The [facility] department will be calling you and following up with you. The [place] [facility] Hot[facility] phone number , They are open Thursday - Thursday 7am - 7pm. Follow up with your primary care provider for re-evaluation and re-testing after the 10 day quarantine and discuss when you should be seen. Sepsis Event Note (ED) - Focused Exam Vital Signs: Vital Signs Temp Pulse Resp BP Pulse Ox 08/24/20 10:12 98.6 F 76 18 163/94 H 98 - My Orders Last 24 Hours: My Active Orders 08/24/20 10:18 EKG Documentation Completion [RC] STAT 08/24/20 10:19 RT Aerosol Therapy [RC] ASDIRECTED - Assessment/Plan Last 24 Hours: My Active Orders 08/24/20 10:18 EKG Documentation Completion [RC] STAT 08/24/20 10:19 RT Aerosol Therapy [RC] ASDIRECTED
[2020-08-24] MEDS ORDERED: Albuterol/Ipratropium 3.0-0.5 MG/3 ML Neb Soln NEB ONE (10:19)
--- NOTE | 2020-08-24 10:21 | PCM.EKG ---
#1 Interpretation EKG Date: 08/24/20 Rhythm: NSR Rate (Beats/Min): 74 EKG Interpretation Comments: Heart rate = 74 bpm, normal sinus rhythm, normal QRS interval, no STEMI. EKG and rhythm strip interpreted by me at 1010
--- NOTE | 2020-08-24 11:01 | CR ---
INDICATION: Shortness of breath TECHNIQUE: Chest 1 views COMPARISON: September 25, 2016 FINDINGS: Cardiovascular and mediastinum: Heart size and vasculature are normal in caliber and appearance. Lungs and pleural spaces: Lungs are clear. No sign of infiltrate or mass. No sign of pleural effusion. No pneumothorax. Bones and soft tissues: No significant findings. IMPRESSION: No acute findings and no significant changes from the prior exam. Dictated by Иван Rausch MD @ Aug 24 2020 10:58AM Signed by Dr. Иван Rausch @ Aug 24 2020 10:59AM
[2020-08-24 11:04] LABS: BLOOD UREA NITROGEN,BUN 13 mg/dL (7.0-18.0); CARBON DIOXIDE,CO2 26.6 mmol/L (21.0-32.0); CHLORIDE,CL 104 mmol/L (98-107); GLUCOSE RANDOM 93 mg/dL (74-106); SODIUM,NA 140 mmol/L (136-148)
[2020-08-24 11:10] LABS: CORONAVIRUS COVID-19 NAA POSITIVE (NEGATIVE); INFLUENZA A NAA NEGATIVE (NEGATIVE); INFLUENZA B NAA NEGATIVE (NEGATIVE)
[2020-08-24 11:14] VITALS: BP 142/88; PULSE 80
== END 2020-08-24 11:19 | disposition home or self-care (01) ==
LOC: MW.ED 10:02
DX: U07.1 COVID-19 (principal); I10 Essential (primary) hypertension; E66.9 Obesity, unspecified; Z68.31 Body mass index [BMI] 31.0-31.9, adult
CPT/HCPCS: 0240U; 36415; 71045; 80053; 84484; 85025; 93005; 99285; J7620-GY

== ENCOUNTER 2024-03-09 05:31 | Observation (INO) | payer BC, OTHER ==
[2024-03-09] MEDS ORDERED: Sodium Chloride 0.9% 2.5 ML Syringe FLUSH PRN (05:55)
[2024-03-09] MEDS ORDERED: Sodium Chloride 0.9% 10 ML Syringe FLUSH PRN (05:55)
[2024-03-09 06:15] LABS: BASOPHILS ABSOLUTE AUTO 0.05 K/uL (0.00-0.20); BASOPHILS PERCENT AUTO 0.5 % (0.0-1.0); EOSINOPHILS ABSOLUTE AUTO 0.19 K/uL (0.00-0.45); EOSINOPHILS PERCENT AUTO 2.1 % (0.0-6.0); HEMATOCRIT 43.3 % (42.0-52.0); HEMOGLOBIN 15.7 g/dL (14.0-18.0); IMMATURE GRAN ABSOLUTE AUTO 0.03 K/uL (0.00-0.05); IMMATURE GRAN PERCENT AUTO 0.3 % (0.0-0.4); LYMPHOCYTES ABSOLUTE AUTO 1.61 K/uL (1.00-4.80); LYMPHOCYTES PERCENT AUTO 17.7 % (24.0-44.0); MEAN CORPUSCULAR HEMOGLOBIN 30.7 pg (28.0-32.0); MEAN CORPUSCULAR HGB CONC 36.3 g/dL (32.0-36.0); MEAN CORPUSCULAR VOLUME 84.7 fL (83.0-99.0); MEAN PLATELET VOLUME 8.5 fL (9.4-12.4); MONOCYTES ABSOLUTE AUTO 0.81 K/uL (0.00-0.80); MONOCYTES PERCENT AUTO 8.9 % (0.0-8.0); NEUTROPHILS ABSOLUTE AUTO 6.42 K/uL (1.80-7.70); NEUTROPHILS PERCENT AUTO 70.5 % (41.0-71.0); PLATELET COUNT,PLT 246 K/uL (150-400); RED BLOOD CELL COUNT 5.11 M/uL (4.52-5.90); WHITE BLOOD CELL COUNT,WBC 9.11 K/uL (3.9-11.3)
[2024-03-09] MEDS: Diphtheria,Pertussis(Acell),Tetanus Vaccine 0.5 ML Syringe IM ONE (06:28)
[2024-03-09] MEDS: cefTRIAXone 2 GM in Sodium Chloride 0.9% 50 ML IV ONE (06:30)
[2024-03-09 06:35] LABS: A/G RATIO 1.1 (0.9-1.6); ALBUMIN 3.7 g/dL (3.4-5.0); BILIRUBIN TOTAL 1.7 mg/dL (0.2-1.0); CALCIUM 8.2 mg/dL (8.5-10.1); CREATININE 1.1 mg/dL (0.8-1.3); EST CRCL DRUG DOSING (CG) 72.82 mL/min; POTASSIUM,K 3.9 mmol/L (3.5-5.1); PROTEIN TOTAL,TP 7.2 g/dL (6.4-8.2)
[2024-03-09] MEDS: VANCOmycin 1.5 GM/300 ML 1.5 GM in Premix Bag 1 BAG IV ONE (07:15)
[2024-03-09] MEDS: Ibuprofen 400 MG Tab PO PRN (12:41)
[2024-03-10] MEDS: cefTRIAXone 2 GM in Sodium Chloride 0.9% 50 ML IV SCH (05:18)
[2024-03-10 07:54] VITALS: BP 134/85; PULSE 73
== END 2024-03-10 08:00 | disposition other institution (70) ==
LOC: MW.ED 05:31 → MW.MS 11:10 → MW.ED 11:38
PROVIDERS: ADMIT Internal Medicine; ATTEND Internal Medicine
DX: L03.011 Cellulitis of right finger (principal); I10 Essential (primary) hypertension; K21.9 Gastro-esophageal reflux disease without esophagitis; E66.9 Obesity, unspecified; Z68.30 Body mass index [BMI] 30.0-30.9, adult; Z79.899 Other long term (current) drug therapy
CPT/HCPCS: 36415; 73140; 80053; 80202; 85025; 86140; 90471; 90715; 96365; 96366; 96367; 96376; 99284; A9270; G0378; J0696; J3370; J3372; J3490; J7050; 99283